=== PATIENT | male | born 1960 | race Hispanic/Latino ===

== ENCOUNTER → 2025-03-30 | Day surgery (SDC) | payer OTHER ==
[2025-03-29 08:52] LABS: BASOPHILS % 0.4 % (0.0-1.0); EOSINOPHILS % 2.8 % (0.0-6.0); LYMPHOCYTES % 43.2 % (18.0-39.1); MONOCYTES % 8.5 % (4.4-11.3); NEUTROPHILS % 44.7 % (38.7-80.0); RED CELL DISTRIBUTION WIDTH 13.9 % (11.7-14.4)
[~2025-03-30] MED LIST: LIDOCAINE HCL 2% LOCAL INJ 5 ML SDV VIAL INJ ONE; LISINOPRIL10 MG PO; METFORMIN HCL500 MG PO; MIDAZOLAM HCL 2 MG/2 ML VIAL ONE; MULTI-VITAMIN1 EACH PO; PROPOFOL IV EMULSION 10 MG/ML 20 ML VIAL ONE; SIMVASTATIN20 MG PO
[2025-03-30] MEDS: LACTATED RINGER'S 1,000 ML ONE (08:55)
[2025-03-30 09:14] VITALS: TEMP 97.1
[2025-03-30 09:35] VITALS: BP 120/77; PULSE 62; RESP 18; O2SAT 99
== END | disposition home or self-care (01) ==
LOC: OR 07:25
PROVIDERS: ATTEND Internal Medicine Gastroenterology
DX: Z12.11 Encounter for screening for malignant neoplasm of colon (principal); E11.9 Type 2 diabetes mellitus without complications; I10 Essential (primary) hypertension; E78.5 Hyperlipidemia, unspecified; Z01.810 Encounter for preprocedural cardiovascular examination; Z01.812 Encounter for preprocedural laboratory examination; Z79.84 Long term (current) use of oral hypoglycemic drugs; Z79.899 Other long term (current) drug therapy
CPT/HCPCS: 36415 ×2; 45330; 82948; 85025; 93005; J2003; J2250; J2704; J7121; 45378

== ENCOUNTER → 2025-05-31 | Day surgery (SDC) | payer OTHER ==
[2025-05-29 09:25] LABS: BASOPHILS % 0.4 % (0.0-1.0); EOSINOPHILS % 2.6 % (0.0-6.0); LYMPHOCYTES % 37.9 % (18.0-39.1); MONOCYTES % 8.5 % (4.4-11.3); NEUTROPHILS % 50.2 % (38.7-80.0); RED CELL DISTRIBUTION WIDTH 13.8 % (11.7-14.4)
[~2025-05-31] MED LIST changes: +TESTOPEL75 MG PO; +[UNRECOGNIZED DRUG - OTHER] PO
[2025-05-31 10:10] VITALS: BP 146/85; PULSE 61; RESP 16; O2SAT 100
[2025-05-31] MEDS: LACTATED RINGER'S 1,000 ML ONE (10:16)
== END | disposition home or self-care (01) ==
LOC: OR 07:00
PROVIDERS: ATTEND Internal Medicine Gastroenterology
DX: Z12.11 Encounter for screening for malignant neoplasm of colon (principal); K63.5 Polyp of colon; K57.30 Diverticulosis of large intestine without perforation or abscess without bleeding; K64.1 Second degree hemorrhoids; I10 Essential (primary) hypertension; E11.9 Type 2 diabetes mellitus without complications; E78.5 Hyperlipidemia, unspecified; Z79.84 Long term (current) use of oral hypoglycemic drugs; Z79.899 Other long term (current) drug therapy; Z01.810 Encounter for preprocedural cardiovascular examination; Z01.812 Encounter for preprocedural laboratory examination
CPT/HCPCS: 36415 ×2; 45384; 82948; 85025; 93005; J2003; J2250; J2704; J7121; 45378